=== PATIENT | female | born 1945 | race Caucasian/White ===

== ENCOUNTER 2016-12-22 17:22 | Emergency (ER) | payer MEDICARE ==
[2016-12-22] MEDS ORDERED: TETRACAINE HCL 0.5% OPH SOLN 2 ML OD ONE (18:34)
--- NOTE | 2016-12-22 19:10 | ER Document Report ---
HPI - HPI Patient complains to provider of: hydrogen peroxide for contact lense cleaning in her eye Onset: This morning Onset/Duration: Sudden Quality of pain: Burning Pain Level: 4 Context: 7am no vision changes redness and discomfort Exacerbated by: Denies Relieved by: Denies Similar symptoms previously: No Recently seen / treated by doctor: No - DERM Skin Color: Normal Past Medical History - Social History Smoking Status: Never Smoker Chew tobacco use (# tins/day): No Frequency of alcohol use: None Drug Abuse: None Family History: Reviewed & Not Pertinent Patient has suicidal ideation: No Patient has homicidal ideation: No Renal/ Medical History: Denies: Hx Peritoneal Dialysis Past Surgical History: Reports: Hx Breast Surgery - mastectomy, Hx Hysterectomy , Hx Orthopedic Surgery - lt knee total - Immunizations Hx Diphtheria, Pertussis, Tetanus Vaccination: No Vertical Provider Document - CONSTITUTIONAL Agree With Documented VS: Yes Exam Limitations: No Limitations General Appearance: WD/WN, No Apparent Distress - INFECTION CONTROL TRAVEL OUTSIDE OF THE [place] IN LAST 30 DAYS: No - HEENT HEENT: Atraumatic, Normocephalic, PERRLA Notes: see patient care note for visual acuity conjunctival injection of the right eye with normal lashes. PERRLA. No pain with light, no florescin uptake. fundoscopic exam normal - RESPIRATORY O2 Sat by Pulse Oximetry: 99 - NEURO Level of Consciousness: Awake, Alert, Appropriate Motor/Sensory: No Motor Deficit, No Sensory Deficit - DERM Integumentary: Warm, Dry, No Rash Course - Re-evaluation Re-evalutation: 12/22/16 20:16 Patient is a 71-year-old female presents with chemical exposure to the eye. Patient flushed her eye although the day at home. No injury noted on exam. Will send patient home on antibiotic and pain medication and follow-up with ophthalmology on Saturday. - Vital Signs Vital signs: Temp Pulse Resp BP Pulse Ox 98.1 F 63 16 151/73 H 99 12/22/16 17:26 12/22/16 17:26 12/22/16 17:26 12/22/16 17:26 12/22/16 17:26 Discharge - Discharge Clinical Impression: Chemical exposure of eye Condition: Good Disposition: HOME, SELF-CARE Instructions: Eyedrop Use ([facility]) Additional Instructions: Please return if symptoms worsen, vision changes that are concerning to you Prescriptions: Besifloxacin HCl [Besivance 0.6% Oph Susp 5 ml] 1 drop OP TID #1 bottle Ketorolac Tromethamine 1 drop OP BIDP PRN #5 ml PRN Reason: Forms: Elevated Blood Pressure Referrals: [facility] [Provider Group] - 12/24/16 ED Eye Complaint - General Chief Complaint: Eye Problem Stated Complaint: RIGHT EYE PAIN Time Seen by Provider: 12/22/16 18:09 TRAVEL OUTSIDE OF THE [place] IN LAST 30 DAYS: No - Related Data Allergies/Adverse Reactions: Yymjjwf-[id number]-[id number] Reductase Inhibitor Allergy (Verified 12/22/16 17:26)
[2016-12-22 19:32] VITALS: BP 145/70
== END 2016-12-22 19:35 | disposition home or self-care (01) ==
LOC: ER 17:22
DX: Z77.098 Contact with and (suspected) exposure to other hazardous, chiefly nonmedicinal, chemicals (principal); H57.11 Ocular pain, right eye; X58.XXXA Exposure to other specified factors, initial encounter
CPT/HCPCS: 99283